=== PATIENT | male | born 1980 | race Caucasian/White ===

== ENCOUNTER 2019-12-25 13:19 | Emergency (ER) | payer OTHER ==
[~2019-12-25] VITALS: Ht 175.3 cm; Wt 96.2 kg
--- NOTE | 2019-12-25 13:40 | NUR ---
pt c/o hypertension, denies any symptoms. Did pt teaching on hypertension. Gave pt d/c instructions, pt verbalized understanding.
[2019-12-25 13:52] VITALS: BP 142/88
== END 2019-12-25 13:55 | disposition home or self-care (01) ==
LOC: ER 13:19
DX: I10 Essential (primary) hypertension (principal); Z82.49 Family history of ischemic heart disease and other diseases of the circulatory system
CPT/HCPCS: A4663